=== PATIENT | female | born 1975 | race Hispanic/Latino ===

== ENCOUNTER 2016-06-23 15:11 | Emergency (ER) | payer OTHER ==
[~2016-06-23] VITALS: Ht 162.6 cm; Wt 55.3 kg
[~2016-06-23 15:11] MED LIST: ADVIL200 MG PO; BENTYL10 M1 PO; CIPRO 500MG TA500 MG PO; MOTRIN600 MG PO; MOTRIN800 MG PO; PERCOCET 325 MG1 TAB PO; PYRIDIUM200 MG PO; TRAMADOL50 MG PO; VICODIN 5-3001 EACH PO; ZOFRAN ODT4 MG PO; ZOFRAN4 M2 PO
[2016-06-23 15:39] LABS: ABSOLUTE BASOPHIL COUNT 0 /CUMM (0.0-0.2); ABSOLUTE EOSINOPHIL COUNT 0.3 /CUMM (0.0-0.7); ABSOLUTE GRANULOCYTE CT 4.3 /CUMM (1.4-6.5); ABSOLUTE LYMPH COUNT 1.7 /CUMM (1.2-3.4); ABSOLUTE MONOCYTE COUNT 0.4 /CUMM (0.10-0.60); BASOPHIL % 0.6 % (0.0-2.0); EOSINOPHIL % 4.4 % (0-5); GRANULOCYTE % 64.6 % (42.2-75.2); HEMATOCRIT 30.1 % (37-47); MEAN CORPUSCULAR HGB 21.1 PG (27.0-31.0); MEAN PLATELET VOLUME 10.9 FL (7.4-10.4); PLATELET COUNT 288 /CUMM (130-400); RBC DISTRIBUTION WIDTH 17.6 % (11.5-14.5); RED BLOOD CELL CT 4.42 /CUMM (4.20-5.40); WHITE BLOOD CELL COUNT 6.7 /CUMM (4.8-10.8)
--- NOTE | 2016-06-23 18:04 | ED CARDIAC/CP/PALPITATIONS ---
History of Present Illness General Chief Complaint: Chest Pain Stated Complaint: CHEST PAIN Source: patient, family, interpreter and translator Exam Limitations: language barrier Vital Signs & Intake/Output Vital Signs & Intake/Output Vital Signs Date Time Temp Pulse Resp B/P Pulse O2 O2 Flow FiO2 Ox Delivery Rate 06/24 2047 97.5 63 18 96/54 98 Room Air 06/234 97.7 68 20 108/56 98 Room Air 06/23 1801 97.5 75 20 110/70 95 Room Air 06/23 1524 96.9 84 18 122/74 100 Room Air ED Intake and Output 06/24 0000 06/23 1200 Intake Total Output Total Balance Patient 122 lb Weight Allergies Coded Allergies: NO KNOWN ALLERGIES (01/16/16) Reconcile Medications Ibuprofen (Advil) 200 MG CAPSULE 2 CAP PO PRN PAIN (Reported) Naproxen (Naprosyn) 500 MG TABLET 1 TAB PO BID PRN pain/inflammation Triage Note: PT TO ED FOR INTERMITTENT CP AND PALPITATIONS X 5 DAYS, REPORTING SHE CAME TO ED TODAY "BECAUSE THEY GOT STRONGER" CURRENTLY CP FREE IN TRIAGE. UNABLE TO IDENTIFY IF ANYTHING MAKES PAIN BETTER OR WORSE, REPORTING ONE EPISODE OF NAUSEA WITH ONE EPISODE OF VOMITING LAST NIGHT. NO ASSOCIATED SOB WITH CP. Triage Nurses Notes Reviewed? yes Onset: Gradual Duration: day(s): (5) Timing: remote history Quality/Severity: sharp Location: left chest/under left breast Radiation: no radiation Activities at Onset: none Modifying Factors: Worsens With: movement. : No Patient currently breastfeeds: No HPI: Patient is a 40-year-old female with no medical history, not on any hormone replacement therapy presenting to the emergency department with chief complaint left-sided chest pain, palpitations that have been going on for the past 5 days. She reports they were intermittent in until today. This morning with worsening symptoms. Pain is sharp and stabbing worse with movement and palpation. Patient denies any recent travel or surgeries. No history of blood clots. Denies headaches. Denies history of thyroid disorders. Denies any recent coughing. No congestion. No sick contacts. (JATIN MORALES,ESTEBAN) Past History Travel History Traveled to [place] past 21 day No Medical History Any Pertinent Medical History? see below for history Neurological: NONE EENT: NONE Cardiovascular: NONE Respiratory: NONE Gastrointestinal: NONE Hepatic: NONE Renal: KIDNEY STONES Musculoskeletal: NONE Psychiatric: NONE Endocrine: NONE Blood Disorders: anemia Cancer(s): NONE POWER GENERATION ENGINEER/Reproductive: ovarian cyst Surgical History Surgical History: CHOLY, TUBAL LIGATION X2 Psychosocial History What is your primary language Lebanese Tobacco Use: Never used ETOH Use: occasional use Illicit Drug Use: denies illicit drug use Family History Hx Contributory? No (ESTEBAN AMOR) Review of Systems Review of Systems Constitutional: Reports: no symptoms. Comments Review of systems: See HPI, All other systems negative. Constitutional, no chills fever or weight loss HEENT: No visual changes no sore throat no congestion Cardiovascular: No orthopnea or ankle swelling Skin, no jaundice no rashes Respiratory: No dyspnea cough sputum or hemoptysis GI: No nausea no vomiting : No dysuria No hematuria Muscle skeletal: no back pain, no neck pain, Neurologic: No numbness no confusion Psych: No stress anxiety or depression,. Heme/endocrine: No bruising no bleeding no polyuria or polydipsia Immunology: No splenectomy or history of AIDS (ESTEBAN AMOR) Physical Exam Physical Exam General Appearance: well developed/nourished, no apparent distress, alert, awake , comfortable Cardiovascular: regular rate/rhythm Comments: Well-developed well-nourished person in no acute distress HEENT: Pupils equally round and reactive to light and accommodation. Nose is atraumatic. Neck: Normal inspection Back: Nontender, no CVA tenderness. Full range of motion Cardiovascular: Regular rate and rhythms no murmurs rubs or gallops, normal JVP Respiratory: Chest nontender. No respiratory distress.breath sounds clear to auscultation bilaterally Abdomen: Soft, mildly tender to palpation over the epigastric and left upper quadrant, nondistended, no appreciable organomegaly. Normal bowel sounds. No ascites Extremity: No edema, no calf tenderness to palpation, normal and equal pulses. Neuro: Alert oriented x3, motor sensory normal Skin: No appreciable rash on exposed skin, skin is warm and dry. Psych: Mood and affect is normal, memory and judgment is normal. Core Measures ACS in differential dx? Yes Severe Sepsis Present: No Septic Shock Present: No (ESTEBAN AMOR) Progress Differential Diagnosis: ACS, muscle strain, pleurisy, pulmonary embolism, nonspecific chest pain Plan of Care: Orders Procedure Date/time Status Add-on Test (ER Only) 06/24 1939 Active LIPASE 06/23 1934 Complete AMYLASE 06/23 1934 Complete TROPONIN LEVEL 06/23 1929 Complete EKG 06/23 1929 Active Telemetry/Courtesy Van Driver 06/23 1817 Active Add-on Test (ER Only) 06/23 180 Active TSH REFLEX 06/23 1531 Complete TROPONIN LEVEL 06/23 1523 Complete COMPREHENSIVE METABOLIC PANEL 06/23 1523 Complete CBC WITHOUT DIFFERENTIAL 06/23 152 Complete EKG 06/23 1511 Active Laboratory Tests 06/23/161934: Troponin I < 0.01, Amylase 78, Lipase 82 06/23/16 1531: Anion Gap 15, Estimated GFR > 60, BUN/Creatinine Ratio 10.0, Glucose 99, Calcium 9.7, Total Bilirubin 0.7, AST 29, ALT 31, Alkaline Phosphatase 50, Troponin I < 0.01, Total Protein 8.0, Albumin 4.8, Globulin 3.2, Albumin/Globulin Ratio 1.5, TSH &T3 &Free T4 Intrp 0.968, CBC w Diff NO MAN DIFF REQ, RBC 4.42, MCV 68.0 L, MCH 21.1 L, RDW 17.6 H, MPV 10.9 H, Gran % 64.6, Lymphocytes % 24.8, Monocytes % 5.6, Eosinophils % 4.4, Basophils % 0.6, Absolute Granulocytes 4.3, Absolute Lymphocytes 1.7, Absolute Monocytes 0.4, Absolute Eosinophils 0.3, Absolute Basophils 0, PUBS MCHC 31.0 L Diagnostic Imaging: Viewed by Me: Radiology Read. Discussed w/RAD: Radiology Read. CXR Impression: no acute abnormality, no infiltrates, normal size heart, normal mediastinum Initial ED EKG: NSR Repeat EKG: unchanged Comments: Given aspirin on arrival. Patient does not want to try anything else for pain. Pain isn't too bad and when she moves. Repeat EKGs normal sinus. Second troponin is negative. Patient will follow up PCP. Discussed with Dr. Mena and she agrees to plan. (JATIN MORALES,ESTEBAN) Departure Departure Time of Disposition: 2028 Disposition: HOME OR SELF CARE Condition: Stable Clinical Impression Primary Impression: Chest pain Qualifiers: Chest pain type: unspecified Qualified Code: R07.9 - Chest pain, unspecified Referrals: PATIENT HAS NO PRIMARY CARE DR (PCP/Family) Additional Instructions: Follow-up with your primary care physician call to make an appointment. Take anti-inflammatory as prescribed. Return for worsening symptoms or concerns. Departure Forms: Customer Survey General Discharge Information Prescriptions: Current Visit Scripts Naproxen (Naprosyn) 1 TAB PO BID PRN pain/inflammation #20 TAB (ESTEBAN AMOR) PA/WEB DEVELOPER PROGRAMMER Co-Sign Statement Statement: ED Attending supervision documentation- [] I saw and evaluated the patient. I have also reviewed all the pertinent lab results and diagnostic results. I agree with the findings and the plan of care as documented in the PA's/WEB DEVELOPER PROGRAMMER's documentation. [x] I have reviewed the ED Record and agree with the PA's/WEB DEVELOPER PROGRAMMER's documentation. [] Additions or exceptions (if any) to the PAs/WEB DEVELOPER PROGRAMMER's note and plan are summarized below: [] (CHARITY CATALAN,SERGIO) Critical Care Note Critical Care Note Critical Care Time: non-applicable (ESTEBAN AMOR)
[2016-06-23] MEDS ORDERED: ADVIL200 M1 PO (18:09)
--- NOTE | 2016-06-23 18:53 | RADIOLOGY REPORT ---
EXAMINATION: XR CHEST CLINICAL INFORMATION: Chest pain. COMPARISON: 12/15/2014 TECHNIQUE: 2 views of the chest were obtained. FINDINGS: The lungs are well expanded. There is no focal consolidation, edema, or effusion. No pneumothorax. The cardiomediastinal silhouette is within normal limits. No acute osseous abnormality. IMPRESSION: Clear lungs. Normal cardiac silhouette.
[2016-06-23] MEDS ORDERED: NAPROSYN500 M1 PO (20:34)
[2016-06-23 20:48] VITALS: BP 96/54
== END 2016-06-23 20:49 ==
LOC: ERH 15:11
PROVIDERS: Emergency Medicine
DX: R07.9 Chest pain, unspecified (principal)
CPT/HCPCS: 93005; 93010